=== PATIENT | male | born 1955 | race Two or more races ===

== ENCOUNTER 2020-07-22 10:29 | Inpatient (IN) | payer MEDICAID, OTHER ==
[2020-07-22] VITALS (10 sets, daily range): BP systolic 94–113; BP diastolic 56–64
[~2020-07-22] VITALS: Ht 162.6 cm; Wt 77.1 kg
[2020-07-22] MEDS ORDERED: ANGIOMAX 250 MG VIAL IV ONE ×2 (10:53→12:55)
[2020-07-22] MEDS ORDERED: MIDAZOLAM HCL 1MG/1ML-2 ML VIAL ONE ×2 (10:53→12:56)
[2020-07-22] MEDS ORDERED: HEPARIN SODIUM (PORCINE) 5000 UNITS/ML 1ML VIAL ONE ×2 (10:53→10:55)
[2020-07-22] MEDS ORDERED: fentaNYL CITRATE 100 MCG/2 ML VL ONE ×2 (10:53→12:55)
[2020-07-22] MEDS ORDERED: VERAPAMIL 2.5MG/ML INJ 2ML VIAL IV ONE (10:53)
[2020-07-22] MEDS ORDERED: IODIXANOL 320MG/ML 100ML BTL IV ONE (10:54)
[2020-07-22] MEDS ORDERED: SODIUM CHL 0.9% 50 ML ONE ×2 (10:54→12:56)
[2020-07-22] MEDS ORDERED: LIDOCAINE 2%HCL (LOCAL ANESTH.) INJ 20ML MDV ONE ×2 (10:54→13:02)
[2020-07-22] MEDS ORDERED: ONDANSETRON HCL 4 MG/2 ML VIAL ONE (11:04)
[2020-07-22] MEDS ORDERED: DOPamine 1600MCG/ML D5W 250 ML IV ONE (11:25)
[2020-07-22] MEDS ORDERED: EPINEPHrine HCL 1 MG/10 ML SYRG ONE (11:26)
[2020-07-22] MEDS ORDERED: NITROGLYCERIN 0.4MG/DOSE SPRAY 4.9GM ONE (11:30)
[2020-07-22] MEDS ORDERED: LIDOCAINE HCL 100 MG/5ML (2%) SYRG INJ IV ONE (11:31)
[2020-07-22 11:36] LABS: Basophils # (auto) 0 10 ^3/uL (0-0.2); Basophils % (auto) 0.6 % (0.0-2.0); Eosinophils # (auto) 0.1 10 ^3/uL (0-0.8); Eosinophils % (auto) 0.8 % (0.0-7.0); Hematocrit 43.2 % (41.0-53.0); Hemoglobin 14.7 g/dL (13.5-17.5); Lymphocytes # (auto) 2.1 10 ^3/uL (0.4-5.4); Lymphocytes % (auto) 31.5 % (10.0-50.0); Mean Corpuscular Hemoglobin 29.2 pg (28.0-32.0); Mean Corpuscular Volume 85.8 fL (80.0-100.0); Monocytes # (auto) 0.6 10 ^3/uL (0-1.3); Neutrophils # (auto) 3.9 10 ^3/uL (1.6-8.6); Neutrophils % (auto) 58.1 % (37.0-80.0); Nucleated Red Blood Cells % 0.1 %; Platelet Count (auto) 231 10^3/uL (140-450); Red Blood Cells 5.04 10^6/uL (4.5-5.90); Red Cell Distribution Width 13.3 % (11.8-14.3); White Blood Cell 6.7 10^3/uL (4.4-10.8)
[2020-07-22] MEDS ORDERED: TICAGRELOR 90 MG TAB ONE (11:37)
[2020-07-22 11:39] LABS: Albumin 3.8 g/dL (3.4-5.0); Calcium 8.8 mg/dL (8.5-10.1); Potassium 3.2 mmol/L (3.5-5.1)
[2020-07-22] MEDS ORDERED: ASPirin 81 mg TAB ONE (11:42)
[2020-07-22 11:44] LABS: BUN/Creatinine Ratio 11.5; Bilirubin, Total 0.5 mg/dL (0.2-1.0); Total Protein 7.4 g/dL (6.4-8.2)
[2020-07-22 11:50] LABS: Partial Thromboplastin Time 22.4 sec (23.0-31.2)
[2020-07-22] MEDS ORDERED: EPTIFIBATIDE DRIP(0.75MG/ML) 100 ML IV ONE ×2 (13:15→20:55)
[2020-07-22] MEDS ORDERED: EPTIFIBATIDE INJ (2MG/ML) 10ML VIAL IV ONE (13:34)
[2020-07-22] MEDS ORDERED: MORPHINE SULFATE 4 MG/ML SYR/VIAL IV PRN (15:30)
[2020-07-22] MEDS ORDERED: MILK OF MAGNESIA 30ML SUSP PO ONE (15:30)
[2020-07-22] MEDS ORDERED: NITROGLYCERIN 0.4 MG SL TAB SL PRN ×2 (15:30)
[2020-07-22] MEDS ORDERED: MORPHINE SULF INJ 2 MG/ML SYRINGE 1ML IV PRN ×3 (15:30→15:45)
[2020-07-22] MEDS ORDERED: ACETAMINOPHEN 500 MG TAB PO PRN ×2 (15:30→15:45)
[2020-07-22] MEDS ORDERED: ZOLPIDEM TARTRATE 5 MG TAB PO PRN (15:30)
[2020-07-22] MEDS ORDERED: ONDANSETRON HCL 4 MG/2 ML VIAL IV PRN ×2 (15:30→15:45)
[2020-07-22] MEDS ORDERED: HYDROcodone-ACET 5/325MG TAB PO PRN ×2 (15:30→15:45)
[2020-07-22] MEDS ORDERED: POTASSIUM CHLORIDE 40 MEQ, LIDOCAINE 1% (LOCAL ANESTH.) 4 ML in SODIUM CHL 0.9% 250 ML IV ONE (15:45)
[2020-07-22] MEDS ORDERED: EPTIFIBATIDE DRIP(0.75MG/ML) 100 ML IV SCH ×2 (15:45→16:00)
[2020-07-22] MEDS ORDERED: SODIUM CHLORIDE 0.9% 1,000 ML IV SCH (15:45)
[2020-07-22] MEDS: EPTIFIBATIDE DRIP(0.75MG/ML) 100 ML IV SCH ×2 (16:16→21:00)
[2020-07-22 16:45] LABS: Cholesterol 303 mg/dL (< 200)
[2020-07-22 16:46] LABS: HDL Cholesterol 55 mg/dL (40-59); LDL Cholesterol 214 mg/dL (< 100); Triglycerides 160 mg/dL (< 150)
--- NOTE | 2020-07-22 19:30 | NUR ---
REPORT RECEIVED Pt a/o x4 sitting in semi fowlers position. IV sites x2 bilat AC running with drips; IV sites benign, no infiltrations seen. Pt right groin site with safeguard placed s/p angiogram filled with air and in place; no bleeding hematoma noted. Pt denies pain. Will cont to monitor.
[2020-07-22] MEDS: TICAGRELOR 90 MG TAB PO SCH (20:46)
[2020-07-22] MEDS: PANTOPRAZOLE 40 MG/10 ML VIAL INJ IV SCH (22:03)
[2020-07-22] MEDS: DOCUSATE SOD 100 MG CAP PO SCH (22:03)
[2020-07-22] MEDS: ATORVASTATIN 20 MG TAB PO SCH (22:03)
[2020-07-23] VITALS (16 sets, daily range): BP systolic 89–111; BP diastolic 52–75
--- NOTE | 2020-07-23 02:20 | NUR ---
PT OOB TO BATHROOM Pt a/o x4. Pt oob with steady gait. Pt denies pain and denies nausea. Pt right groin site benign, no hematoma, no bleeding. Pt tolerated well. Pt urinated and had bowel movement with no complications. Linen changed. Reconnected to equipment monitors. Pt resting comfortably. Will cont to monitor.
--- NOTE | 2020-07-23 03:43 | NUR ---
LAB AT BEDSIDE
--- NOTE | 2020-07-23 04:21 | NUR ---
Assumed care. pt in bed resting with eyes closed. NAD noted.
--- NOTE | 2020-07-23 04:21 | NUR ---
Report given and care endorsed to Gabriel Shay. Pt stable. No incidents to report.
[2020-07-23 04:51] LABS: Basophils # (auto) 0 10 ^3/uL (0-0.2); Basophils % (auto) 0.1 % (0.0-2.0); Eosinophils # (auto) 0 10 ^3/uL (0-0.8); Eosinophils % (auto) 0.1 % (0.0-7.0); Hematocrit 37.1 % (41.0-53.0); Hemoglobin 12.9 g/dL (13.5-17.5); Lymphocytes # (auto) 1.4 10 ^3/uL (0.4-5.4); Lymphocytes % (auto) 14.9 % (10.0-50.0); Mean Corpuscular Hemoglobin 29.9 pg (28.0-32.0); Mean Corpuscular Hgb Conc. 34.8 g/dL (32.0-36.0); Mean Corpuscular Volume 85.8 fL (80.0-100.0); Monocytes # (auto) 0.8 10 ^3/uL (0-1.3); Monocytes % (auto) 8.4 % (0.0-12.0); Neutrophils # (auto) 7.2 10 ^3/uL (1.6-8.6); Neutrophils % (auto) 76.5 % (37.0-80.0); Platelet Count (auto) 178 10^3/uL (140-450); Red Blood Cells 4.33 10^6/uL (4.5-5.90); Red Cell Distribution Width 13.7 % (11.8-14.3); White Blood Cell 9.4 10^3/uL (4.4-10.8)
[2020-07-23 05:13] LABS: Potassium 3.6 mmol/L (3.5-5.1)
[2020-07-23 05:14] LABS: INR 1.03 (0.9-1.15); Partial Thromboplastin Time 25.6 sec (23.0-31.2)
[2020-07-23 05:57] LABS: BUN/Creatinine Ratio 15.3; Calcium 8.1 mg/dL (8.5-10.1)
--- NOTE | 2020-07-23 06:13 | NUR ---
Pt awake denies distress. pt wishes to get some more sleep. pt groin assessed and no signs of bleeding. safeguard in place took 2mls of air out and will reassess. pt verbalizes signs and symptoms to report.
--- NOTE | 2020-07-23 06:51 | NUR ---
Pt is adamant about using the bathroom and not bedside commode. pt verbalizes risks and understands. pt up to bathroom. steady gait noted. pt orientated to red cord and to pull if needs any assistance.
--- NOTE | 2020-07-23 06:55 | NUR ---
Pt back from bathroom on own power. pt denies distress. no cp, dizziness or sob. no bleeding noted from site. more air removed from safeguard.
--- NOTE | 2020-07-23 07:20 | NUR ---
updated MD Eaton with labs and pt assessment. ok to transfer pt to tele with safeguard deflated. trop value of 84 read to MD. no new orders.
--- NOTE | 2020-07-23 07:43 | NUR ---
air removed from safeguard. pt denies distress. education given to pt RE: Medication and importance to take the blood thinning medication. diagrams shown to pt and pt verbalizes understanding and importance to take his medication as ordered.
--- NOTE | 2020-07-23 08:20 | NUR ---
Pt safeguard is deflated. pt verbalizes signs and symptoms to report. pt denies any distress.
[2020-07-23] MEDS: TICAGRELOR 90 MG TAB PO SCH ×2 (09:45→22:25)
[2020-07-23] MEDS: ASPirin 81 mg TAB PO SCH (09:45)
[2020-07-23] MEDS: DOCUSATE SOD 100 MG CAP PO SCH ×2 (09:47→22:00)
[2020-07-23] MEDS: PANTOPRAZOLE 40 MG/10 ML VIAL INJ IV SCH ×2 (09:49→22:25)
[2020-07-23] MEDS ORDERED: TICAGRELOR 90 MG TAB PO SCH (10:00)
[2020-07-23] MEDS ORDERED: FAMOTIDINE 20 MG TAB PO SCH (10:00)
--- NOTE | 2020-07-23 10:03 | NUR ---
Patient taken to telemetry unit via gurney by this RN and CLAUDE Washington. windows server architect in place, patient stable for transport. NAD noted upon departure. Primary RNAdriana present at bedside to witness right radial site and right groin site benign no s/s of bleeding or hematoma formation. Bed set in lowest locked position with side rails up x2, and call light is within reach. Care endorsed to primary RN.
--- NOTE | 2020-07-23 10:15 | NUR ---
Telemetry admit from Third Loader JERRI ALVAREZ admitted to Telemetry unit after SBAR received. Patient oriented to primary RN, unit, room, bed, and unit policies regarding patient care and visiting hours. Patient now on continuous telemetry monitoring, tele box # [id number]. Dressing to right wrist dry and intact, safeguard noted to right groin with bruises around site. Call light placed within reach and patient encouraged to call if they need something. All questions and concerns addressed, patient verbalized understanding.
--- NOTE | 2020-07-23 11:45 | NUR ---
Hospitalist Rounded Dr. Sullivan rounded on patient.
--- NOTE | 2020-07-23 12:40 | NUR ---
Discharge Held Dr. Sullivan called stating that patient was not cleared by assembler dc field ring for discharge today. So discharge should be held until tomorrow 07/24/20.
--- NOTE | 2020-07-23 19:35 | NUR ---
Opening Shift Note Received report from Adriana. Assumed care of patient, awake and alert. No S/S of distress/SOB or pain. Call light is within reach, fall precautions are in place, side rails up x2. Instructed on POC and to call for assist PRN. All questions and concerns answered, will continue to monitor for changes Q1hr and PRN.
[2020-07-23] MEDS: ATORVASTATIN 20 MG TAB PO SCH (22:25)
[2020-07-24 05:32] VITALS: BP 108/68
--- NOTE | 2020-07-24 07:10 | NUR ---
OPENING SHIFT NOTE Assumed care of patient from overnight houseperson RN. Patient is alert and oriented x4, no signs of distress noted denies pain. He was updated on the plan of care and verbalized understanding. Bed is locked, in the lowest position, side rails are up x2 and call light is in reach. He was encouraged to call for assistance as needed.
--- NOTE | 2020-07-24 08:24 | NUR ---
MESSAGE LEFT FOR HUGH regarding patient insurance. Awaiting call back.
[2020-07-24 09:00] VITALS: BP 93/64
--- NOTE | 2020-07-24 09:37 | NUR ---
SPOKE WITH MARY ALTMAN per Mary patient has [employer] insurance.
[2020-07-24] MEDS: DOCUSATE SOD 100 MG CAP PO SCH (09:44)
[2020-07-24] MEDS: ASPirin 81 mg TAB PO SCH (09:44)
[2020-07-24] MEDS: TICAGRELOR 90 MG TAB PO SCH (09:45)
[2020-07-24] MEDS: PANTOPRAZOLE 40 MG/10 ML VIAL INJ IV SCH (09:45)
--- NOTE | 2020-07-24 12:13 | NUR ---
[facility] AT BEDSIDE updated on the patient status, plan of care was discussed with the patient. Per MD patient is going to be DC today.
[2020-07-24 12:23] VITALS: BP 112/70
--- NOTE | 2020-07-24 12:27 | NUR ---
CRITICAL TROPONIN from Delma in the lab, Troponin 35.0, trending down, MD CHOUDHURY aware.
--- NOTE | 2020-07-24 16:10 | NUR ---
MEDICATIONS PICKED UP FROM [facility] And given to patient.
[2020-07-24 16:23] VITALS: BP 105/65
--- NOTE | 2020-07-24 16:43 | NUR ---
UNABLE TO SEND COPY OF DISCHARGE PACKET TO PCP OR BOREMATIC MACHINE OPERATOR PT DOES NOT HAVE A PCP OR BOREMATIC MACHINE OPERATOR.
--- NOTE | 2020-07-24 17:20 | NUR ---
DISCHARGE Discharge instructions given as ordered. Encourage to follow up with PMD as instructed. All questions and concerns addressed. Patient verbalized understanding. Medication reconciliation form completed and copy given to patient. IV removed with catheter intact, pressure dressing applied, Telemetry unit returned to ICU. Patient taken to vehicle via wheelchair with all personal belongings, accompanied by staff. No distress noted at time of departure.
== END 2020-07-24 17:20 | disposition home or self-care (01) | DRG 174 ==
LOC: ER 10:29 → EDBD 10:29 → CATH ICU 10:30 → TELE-CENTR 07-23 10:32
PROVIDERS: ADMIT Nurse Practitioner Acute Care; ATTEND Internal Medicine
PROC: 4A023N7 Measurement of Cardiac Sampling and Pressure, Left Heart, Percutaneous Approach (ICD-10-PCS; principal; 2020-07-22)
PROC: B2111ZZ Fluoroscopy of Multiple Coronary Arteries using Low Osmolar Contrast (ICD-10-PCS; 2020-07-22)
PROC: 027036Z Dilation of Coronary Artery, One Artery with Three Drug-eluting Intraluminal Devices, Percutaneous Approach (ICD-10-PCS; 2020-07-22)
PROC: 02703ZZ Dilation of Coronary Artery, One Artery, Percutaneous Approach (ICD-10-PCS; 2020-07-22)
DX: I21.19 ST elevation (STEMI) myocardial infarction involving other coronary artery of inferior wall (principal); D68.59 Other primary thrombophilia; E78.00 Pure hypercholesterolemia, unspecified; E87.6 Hypokalemia; I25.10 Atherosclerotic heart disease of native coronary artery without angina pectoris; I11.0 Hypertensive heart disease with heart failure; I50.9 Heart failure, unspecified; Z20.828 Contact with and (suspected) exposure to other viral communicable diseases; T82.855A Stenosis of coronary artery stent, initial encounter; Y83.2 Surgical operation with anastomosis, bypass or graft as the cause of abnormal reaction of the patient, or of later complication, without mention of misadventure at the time of the procedure; Z79.82 Long term (current) use of aspirin; Z79.899 Other long term (current) drug therapy; Z87.891 Personal history of nicotine dependence; Y92.89 Other specified places as the place of occurrence of the external cause
CPT/HCPCS: 36415; 71045; 80048; 80053; 80061; 83036; 84484; 85025; 85610; 85730; 86141; 87426; 92928; 93306; 93458; 99152; 99153; C1874; C1887; C9113; G0378; J2001; J2250; J2405; Q9967

== ENCOUNTER 2020-07-28 02:52 | Inpatient (IN) | payer MEDICAID ==
[~2020-07-28] VITALS: Ht 162.6 cm; Wt 80.0 kg
[2020-07-28] MEDS ORDERED: HEPARIN SODIUM (PORCINE) 5000 UNITS/ML 1ML VIAL ONE (03:08)
[2020-07-28] MEDS ORDERED: ASPirin 325 MG TAB PO ONE (03:15)
[2020-07-28] MEDS ORDERED: MORPHINE SULF INJ 2 MG/ML SYRINGE 1ML IV ONE ×2 (03:15→03:30)
[2020-07-28] MEDS ORDERED: HEPARIN SODIUM (PORCINE) 5000 UNITS/ML 1ML VIAL IV ONE ×2 (03:15→03:30)
[2020-07-28] MEDS ORDERED: IODIXANOL 320MG/ML 100ML BTL IV ONE (03:29)
[2020-07-28] MEDS ORDERED: LIDOCAINE 2%HCL (LOCAL ANESTH.) INJ 20ML MDV ONE (03:29)
[2020-07-28] MEDS ORDERED: ASPirin 81 mg TAB PO ONE (03:30)
[2020-07-28] MEDS ORDERED: fentaNYL CITRATE 100 MCG/2 ML VL ONE (03:31)
[2020-07-28] MEDS ORDERED: MIDAZOLAM HCL 1MG/1ML-2 ML VIAL ONE (03:31)
[2020-07-28] MEDS ORDERED: ADENOSINE 6 MG/2 ML INJ IV ONE (03:31)
[2020-07-28] MEDS ORDERED: ANGIOMAX 250 MG VIAL IV ONE (03:31)
[2020-07-28] MEDS ORDERED: niCARdipine 25 MG/10 ML VIAL IV ONE (03:31)
[2020-07-28] MEDS ORDERED: DOPamine 1600MCG/ML D5W 0 ML IV ONE (03:32)
[2020-07-28] MEDS ORDERED: SODIUM CHL 0.9% 50 ML ONE (03:32)
[2020-07-28] MEDS ORDERED: EPINEPHrine HCL 1 MG/10 ML SYRG ONE (03:32)
[2020-07-28 03:37] LABS: Basophils # (auto) 0 10 ^3/uL (0-0.2); Basophils % (auto) 0.5 % (0.0-2.0); Eosinophils # (auto) 0.1 10 ^3/uL (0-0.8); Eosinophils % (auto) 0.9 % (0.0-7.0); Hematocrit 35.7 % (41.0-53.0); Hemoglobin 11.9 g/dL (13.5-17.5); Lymphocytes % (auto) 40.2 % (10.0-50.0); Mean Corpuscular Hemoglobin 29.5 pg (28.0-32.0); Mean Corpuscular Hgb Conc. 33.3 g/dL (32.0-36.0); Mean Corpuscular Volume 88.7 fL (80.0-100.0); Monocytes # (auto) 0.7 10 ^3/uL (0-1.3); Monocytes % (auto) 9.5 % (0.0-12.0); Neutrophils # (auto) 3.7 10 ^3/uL (1.6-8.6); Neutrophils % (auto) 48.9 % (37.0-80.0); Nucleated Red Blood Cells % 0.1 %; Platelet Count (auto) 211 10^3/uL (140-450); Red Blood Cells 4.03 10^6/uL (4.5-5.90); Red Cell Distribution Width 13.2 % (11.8-14.3); White Blood Cell 7.6 10^3/uL (4.4-10.8)
[2020-07-28] MEDS ORDERED: ATROPINE SULF 1 MG/10ml SYR ONE (03:47)
[2020-07-28 03:49] LABS: Calcium 7.9 mg/dL (8.5-10.1); Magnesium 2.6 mg/dL (1.6-2.6); Potassium 3.4 mmol/L (3.5-5.1)
[2020-07-28 03:53] LABS: BUN/Creatinine Ratio 13.3; Bilirubin, Total 0.5 mg/dL (0.2-1.0); Total Protein 6.5 g/dL (6.4-8.2)
[2020-07-28] MEDS ORDERED: EPTIFIBATIDE INJ (2MG/ML) 10ML VIAL IV ONE (03:58)
[2020-07-28] MEDS ORDERED: AMIODARONE HCL (50 MG/ ML) 3 ML VIAL IV ONE (03:59)
[2020-07-28] MEDS ORDERED: AMIODARONE KIT 500 ML IV ONE (04:01)
[2020-07-28 04:13] LABS: INR 0.97 (0.9-1.15)
[2020-07-28 04:15] LABS: Partial Thromboplastin Time > 139.0 sec (23.0-31.2)
[2020-07-28] MEDS ORDERED: TICAGRELOR 90 MG TAB ONE (04:39)
[2020-07-28 05:00] VITALS: BP 119/59
[2020-07-28] MEDS ORDERED: ZOLPIDEM TARTRATE 5 MG TAB PO PRN (05:15)
[2020-07-28] MEDS ORDERED: MORPHINE SULF INJ 2 MG/ML SYRINGE 1ML IV PRN (05:15)
[2020-07-28] MEDS ORDERED: ONDANSETRON HCL 4 MG/2 ML VIAL IV PRN (05:15)
[2020-07-28] MEDS ORDERED: NITROGLYCERIN 0.4 MG SL TAB SL PRN (05:15)
[2020-07-28] MEDS ORDERED: ACETAMINOPHEN 500 MG TAB PO PRN (05:15)
[2020-07-28] MEDS ORDERED: HYDROcodone-ACET 5/325MG TAB PO PRN (05:15)
--- NOTE | 2020-07-28 05:35 | NUR ---
ADMISSION NOTE Pt transferred to room 218-A by landscape laborer staff. Pt oriented to room and procedures and POC discussed with pt and pt verbalizes understanding.Pt is resting flat and verbalizes understanding that he is to lay flat until 0700. Left groin site drsg is cdi at this time. Bed is low, wheels are locked, and call light is with in reach. Bed alarm is set for pt safety.
--- NOTE | 2020-07-28 07:49 | NUR ---
Opening Shift Note Assumed care of patient, awake and alert laying flat in bed. No S/S of distress/SOB or pain. Dressing to left groin dry, soft and intact. No bleeding noted. Patient may sit up in bed. Instructed on POC and to call for assist PRN, will continue to monitor for changes Q1hr and PRN. Bed alarm on for safety and call light placed within reach.
[2020-07-28 08:48] VITALS: BP 112/67
[2020-07-28] MEDS: METOPROLOL SUCCINATE XL 50 MG TAB PO SCH (09:37)
[2020-07-28] MEDS: TICAGRELOR 90 MG TAB PO SCH ×2 (10:00→22:24)
[2020-07-28] MEDS: ASPirin 81 mg TAB PO SCH (10:00)
--- NOTE | 2020-07-28 11:30 | NUR ---
Critical Labs Dr. Covarrubias is aware of critical troponin. No new orders received.
--- NOTE | 2020-07-28 12:04 | NUR ---
Aspirin and Brilinta Medications not administered, as per MD Dr. Covarrubias, to start Brilinta tonight and aspirin in the morning as loading doses were already given this morning.
[2020-07-28 12:41] VITALS: BP 118/71
--- NOTE | 2020-07-28 14:47 | NUR ---
Critical Lab Dr. Daniel Covarurbias is aware of critical troponin level at 37. Telephone order received to discontinue troponin lab draws. MD will see patient this afternoon.
--- NOTE | 2020-07-28 16:00 | NUR ---
Hospitalist Rounded Dr. Covarrubias rounded on patient. He updated family regarding plan of care. Patient for D/C in the AM. Communication orders regardign discharge noted, will endorse to home insurance agent RN.
[2020-07-28 17:00] VITALS: BP 112/73
--- NOTE | 2020-07-28 19:25 | NUR ---
OPENING SHIFT NOTE Assumed care of patient who is alert and oriented, currently on RA with no S/S of distress or SOB noted at this time. Patient denies any pain. Status post LHC, dressing to the left groin, dressing is clean dry and intact. POC discussed with patient, all questions answered, patient verbalized understanding. Bed is locked, in lowest position, side rails upx2. Patient is ambulatory without assistance. Call light is within reach, patient encouraged to call for assistance as needed. Will continue to monitor PRN/Q1hr.
[2020-07-28 21:21] VITALS: BP 110/65
[2020-07-28] MEDS ORDERED: ATORVASTATIN 20 MG TAB PO SCH (22:00)
[2020-07-29 05:54] VITALS: BP 104/61
--- NOTE | 2020-07-29 08:00 | NUR ---
Patient denies shortness of breath, no sternal pain and feet warm. Breathing is easier and denies any cardiac related problems. Educated on importance of taking all prescribed medications, signal for help using call light if there is sudden onset of chest pain. Verbalized understanding and has no further needs.
[2020-07-29 09:00] VITALS: BP 109/63
[2020-07-29] MEDS: TICAGRELOR 90 MG TAB PO SCH (09:10)
[2020-07-29] MEDS: ASPirin 81 mg TAB PO SCH (09:10)
[2020-07-29] MEDS: METOPROLOL SUCCINATE XL 50 MG TAB PO SCH (09:11)
[2020-07-29 11:36] VITALS: BP 109/63
--- NOTE | 2020-07-29 12:18 | NUR ---
Assessment Patient is a 64 year old male, patient was unable to speak with SW, SW called son Su ([phone]). Per Enocnacho, patient is alert and oriented. Per Rosendobrad, cognitive abilities are intact. Per Enocnacho, patient can do all ADL's and ambulate independently. Per Su, patient is retired and lives with son. Per Rosendobrad, patient will return home post discharge. Per Enocnacho, he and his mother is the patient support system. Per Su, he will provide transportation post discharge. Per Su, is requesting Advance Directives forms. Discharge planning: Patient will return home post discharge, patient will follow up care with his PCP post discharge. RIA will provide Advance Directive forms prior to discharge. There are no other discharge needs to address at the moment. Addendum: 07/29/20 at 1222 by ELIA TROTTER Amended: Links added.
[2020-07-29 13:00] VITALS: BP 103/65
--- NOTE | 2020-07-29 14:30 | NUR ---
Patient discharged home and was given education on importance of taking medications, following prescribed medication regime and following up with Dr Covarrubias. All questions regarding discharge answered and taken off the unit by patent legal assistant.
== END 2020-07-29 15:18 | disposition home or self-care (01) | DRG 174 ==
LOC: ER 02:52 → EDUNIT# 02:52 → EDBD 02:52 → CATH 1 02:53 → TELE-CENTR 02:54
PROVIDERS: ADMIT Specialist; ATTEND Specialist
PROC: 02703ZZ Dilation of Coronary Artery, One Artery, Percutaneous Approach (ICD-10-PCS; principal; 2020-07-28)
PROC: 02C03ZZ Extirpation of Matter from Coronary Artery, One Artery, Percutaneous Approach (ICD-10-PCS; 2020-07-28)
PROC: 4A023N7 Measurement of Cardiac Sampling and Pressure, Left Heart, Percutaneous Approach (ICD-10-PCS; 2020-07-28)
PROC: B41G1ZZ Fluoroscopy of Left Lower Extremity Arteries using Low Osmolar Contrast (ICD-10-PCS; 2020-07-28)
PROC: B2111ZZ Fluoroscopy of Multiple Coronary Arteries using Low Osmolar Contrast (ICD-10-PCS; 2020-07-28)
PROC: B2151ZZ Fluoroscopy of Left Heart using Low Osmolar Contrast (ICD-10-PCS; 2020-07-28)
PROC: B240ZZ3 Ultrasonography of Single Coronary Artery, Intravascular (ICD-10-PCS; 2020-07-28)
PROC: 3E073PZ Introduction of Platelet Inhibitor into Coronary Artery, Percutaneous Approach (ICD-10-PCS; 2020-07-28)
PROC: 5A2204Z Restoration of Cardiac Rhythm, Single (ICD-10-PCS; 2020-07-28)
DX: I21.19 ST elevation (STEMI) myocardial infarction involving other coronary artery of inferior wall (principal); I49.01 Ventricular fibrillation; F17.210 Nicotine dependence, cigarettes, uncomplicated; I25.10 Atherosclerotic heart disease of native coronary artery without angina pectoris; Z79.02 Long term (current) use of antithrombotics/antiplatelets; Z79.899 Other long term (current) drug therapy; Z20.828 Contact with and (suspected) exposure to other viral communicable diseases
CPT/HCPCS: 36415; 71045; 80053; 80061; 83735; 84484; 85025; 85610; 85730; 87081; 92920; 92973; 92978; 93005; 93306; 93458; 96374; 96375; 99291; G0378; J0153; J0282; J2250; Q9967